=== PATIENT | female | born 1995 | race Caucasian/White ===

== ENCOUNTER 2018-01-04 12:10 | Emergency (ER) | payer OTHER ==
[~2018-01-04 12:10] MED LIST: Z.0.BCPILL PO
[2018-01-04 12:17] VITALS: BP 112/62; PULSE 83; RESP 16; TEMP 97.3; O2SAT 100
[2018-01-04] MEDS ORDERED: ONDANSETRON HCL 4 MG/2 ML VIAL IV PUSH ONE (12:30)
[2018-01-04] MEDS ORDERED: ONDANSETRON ODT 4 MG TAB PO ONE (12:30)
[2018-01-04] MEDS ORDERED: SODIUM CHLOR 0.9% 1000 ML INJ 1,000 ML IV ONE ×2 (12:30→13:30)
[2018-01-04 12:40] LABS: AUTOMATED NEUTROPHIL # 2.4 TH/MM3 (1.8-7.7); BASOPHIL % 0.3 % (0.0-2.0); EOSINOPHIL # 0.1 TH/MM3 (0-0.4); EOSINOPHIL % 1.7 % (0.0-4.0); HEMATOCRIT 43.3 % (35.0-46.0); LYMPH % 30.5 % (9.0-44.0); LYMPHOCYTE # 1.4 TH/MM3 (1.0-4.8); MEAN CORPUSCULAR HEMOGLOBIN 29.8 PG (27.0-34.0); MEAN CORPUSCULAR HGB CONC 34.6 % (32.0-36.0); MONO % 13.8 % (0.0-8.0); MONOCYTE # 0.6 TH/MM3 (0-0.9); NEUT % 53.7 % (16.0-70.0); PLATELET COUNT 233 TH/MM3 (150-450); RED BLOOD COUNT 5.04 MIL/MM3 (4.00-5.30); RED CELL DISTRIBUTION WIDTH 12.9 % (11.6-17.2); WHITE BLOOD COUNT 4.5 TH/MM3 (4.0-11.0)
[2018-01-04 12:53] LABS: ALBUMIN 3.9 GM/DL (3.4-5.0); AST (GOT) 33 U/L (16-38); BICARBONATE 28.5 MEQ/L (21.0-32.0); BLOOD UREA NITROGEN 7 MG/DL (7-18); CALCIUM 9.1 MG/DL (8.5-10.1); CHLORIDE 104 MEQ/L (98-107); CREATININE 0.72 MG/DL (0.50-1.00); GLOMERULAR FILTRATION RATE 103 ML/MIN (>89); GLUCOSE,RANDOM 84 MG/DL (74-106); SODIUM (NA) 139 MEQ/L (136-145)
[2018-01-04 12:54] LABS: ALT (GPT) 41 U/L (9-42)
[2018-01-04 12:56] LABS: ALKALINE PHOSPHATASE 92 U/L (45-117); TOTAL BILIRUBIN ADULT 0.6 MG/DL (0.2-1.0); TOTAL PROTEIN 7.6 GM/DL (6.4-8.2)
[2018-01-04] MEDS ORDERED: ZOFR4TAB3 SL (13:30)
[2018-01-04 14:10] LABS: BILIRUBIN, URINE NEG (NEG); BLOOD, URINE NEG (NEG); GLUCOSE,URINE NEG (NEG); KETONE, URINE 40 mg/dL (NEG); MUCUS URINE FEW /lpf (OCC); NITRITE,URINE NEG (NEG); PH, URINE 6.5 (5.0-8.5); SQUAMOUS EPITHELIAL CELL URINE 3 /hpf (0-5); URINE COLOR YELLOW (YELLW/STRAW); URINE LEUKOCYTE ESTERASE NEG (NEG)
[2018-01-04] MEDS ORDERED: HYOSCYAMINE 0.125 MG TAB PO STA (14:24)
--- NOTE | 2018-01-04 14:24 | PD ---
HPI Chief Complaint: GI Complaint Time Seen by Provider: 12:12 Travel History International Travel<30 days: No Contact w/Intl Traveler<30days: No Traveled to known affect area: No History of Present Illness HPI Patient is here with numerous episodes of watery green diarrhea that lacks blood and mucus. She has crampy abdominal pain but nothing severe. She had chills yesterday. She had temperature of 100.6F. No back pain or dysuria. No sore throat or rhinorrhea or otalgia or eye drainage. She has been a little bit dizzy and feeling dehydrated. Her stepfather and nephew and sisters have similar syndrome. When she eats she has immediate diarrhea and then starts vomiting. Other than that she is not having profuse vomiting. No dysuria or hematuria. No rash or headache. No mental status changes or seizures. No severe abdominal pain History Past Medical History Medical History: Denies Significant Hx Developmental Delay: No Hearing: No Pneumonia: Yes (AGE 10) Immunizations Current: Yes Tetanus Vaccination: < 5 Years Vision or Eye Problem: No ?: Not Past Surgical History Surgical History: No Previous Surgery Social History Attends: School Tobacco Use in Home: No Alcohol Use: No Tobacco Use: No Substance Use: No Allergies-Medications (Allergen,Severity, Reaction): Coded Allergies: No Known Allergies (Unverified Allergy, Unknown, 01/04/18) Sulfa (Sulfonamide Antibiotics) (Verified Allergy, Unknown, 01/04/18) Reported Meds & Prescriptions Reported Meds & Active Scripts Active Levsin (Hyoscyamine Sulfate) 0.125 Mg Tab 0.125 Mg PO Q6H 10 Days Zofran Odt (Ondansetron Odt) 4 Mg Tab 4 Mg SL Q8HR PRN 14 Days Reported Control Pills (Miscellaneous Medication) Tab 1 Tab PO HS ROS Except as stated in HPI: all other systems reviewed are Neg Physical Exam Narrative GENERAL APPEARANCE: The patient is a well-developed, well-nourished, child in no acute distress. SKIN: Skin is warm and dry without erythema, swelling or exudate. There is good turgor. No tenting. HEENT: Throat is clear without erythema, swelling or exudate. Mucous membranes are dry Uvula is midline. Airway is patent. The pupils are equal, round and reactive to light. Extraocular motions are intact. No drainage or injection. The ears show bilateral tympanic membranes without erythema, dullness or loss of landmarks. No perforation. NECK: Supple and nontender with full range of motion without discomfort. No meningeal signs. LUNGS: Equal and bilateral breath sounds without wheezes, rales or rhonchi. CHEST: The chest wall is without retractions or use of accessory muscles. HEART: Has a regular rate and rhythm without murmur, gallops, click or rub. ABDOMEN: Soft, nontender with positive active bowel sounds. No rebound tenderness. No masses, no hepatosplenomegaly. EXTREMITIES: Without cyanosis, clubbing or edema. Equal 2+ distal pulses and 2 second capillary refill noted. NEUROLOGIC: The patient is alert, aware, and appropriately interactive with parent and with examiner. The patient moves all extremities with normal muscle strength. Normal muscle tone is noted. Normal coordination is noted. Data Data Last Documented VS Vital Signs Date Time Temp Pulse Resp B/P (MAP) Pulse Ox O2 Delivery O2 Flow Rate FiO2 01/04/18 12:17 97.3 83 16 112/62 (79) 100 Orders Orders Ondansetron Odt (Zofran Odt) (01/04/18 12:30) Ondansetron Inj (Zofran Inj) (01/04/18 12:30) Sodium Chlor 0.9% 1000 Ml Inj (Ns 1000 M (01/04/18 12:30) C-Reactive Protein (Crp) (01/04/18 12:20) Complete Blood Count With Diff (01/04/18 12:20) Comprehensive Metabolic Panel (01/04/18 12:20) Urinalysis - C+S If Indicated (01/04/18 12:20) Sodium Chlor 0.9% 1000 Ml Inj (Ns 1000 M (01/04/18 13:30) Enteric Path (Stool) (01/04/18 13:42) Rotavirus Ag Detection (Stool) (01/04/18 13:42) Hyoscyamine (Levsin) (01/04/18 14:24) Labs Laboratory Tests Test 01/04/18 12:30 01/04/18 13:30 White Blood Count 4.5 TH/MM3 Red Blood Count 5.04 MIL/MM3 Hemoglobin 15.0 GM/DL Hematocrit 43.3 % Mean Corpuscular Volume 86.0 FL Mean Corpuscular Hemoglobin 29.8 PG Mean Corpuscular Hemoglobin Concent 34.6 % Red Cell Distribution Width 12.9 % Platelet Count 233 TH/MM3 Mean Platelet Volume 8.0 FL Neutrophils (%) (Auto) 53.7 % Lymphocytes (%) (Auto) 30.5 % Monocytes (%) (Auto) 13.8 % Eosinophils (%) (Auto) 1.7 % Basophils (%) (Auto) 0.3 % Neutrophils # (Auto) 2.4 TH/MM3 Lymphocytes # (Auto) 1.4 TH/MM3 Monocytes # (Auto) 0.6 TH/MM3 Eosinophils # (Auto) 0.1 TH/MM3 Basophils # (Auto) 0.0 TH/MM3 CBC Comment DIFF FINAL Differential Comment Blood Urea Nitrogen 7 MG/DL Creatinine 0.72 MG/DL Random Glucose 84 MG/DL Total Protein 7.6 GM/DL Albumin 3.9 GM/DL Calcium Level 9.1 MG/DL Alkaline Phosphatase 92 U/L Aspartate Amino Transf (AST/SGOT) 33 U/L Alanine Aminotransferase (ALT/SGPT) 41 U/L Total Bilirubin 0.6 MG/DL Sodium Level 139 MEQ/L Potassium Level 3.7 MEQ/L Chloride Level 104 MEQ/L Carbon Dioxide Level 28.5 MEQ/L Anion Gap 7 MEQ/L Estimat Glomerular Filtration Rate 103 ML/MIN C-Reactive Protein 4.00 MG/DL Urine Color YELLOW Urine Turbidity CLEAR Urine pH 6.5 Urine Specific [place] 1.015 Urine Protein TRACE mg/dL Urine Glucose (UA) NEG mg/dL Urine Ketones 40 mg/dL Urine Occult Blood NEG Urine Nitrite NEG Urine Bilirubin NEG Urine Urobilinogen LESS THAN 2.0 MG/DL Urine Leukocyte Esterase NEG Urine RBC 3 /hpf Urine WBC 2 /hpf Urine Squamous Epithelial Cells 3 /hpf Urine Mucus FEW /lpf Microscopic Urinalysis Comment CULT NOT INDICATED MDM Medical Decision Making Medical Screen Exam Complete: Yes Emergency Medical Condition: Yes Medical Record Reviewed: Yes Differential Diagnosis Viral gastroenteritis, rotavirus, [place] virus, bacterial gastroenteritis such as Salmonella or Shigella, less likely parasitic gastroenteritis, mild dehydration, UTI, Narrative Course Patient is here because she has had 2-3 days of watery fulminant diarrhea. She has having some weakness and dizziness and appeared dehydrated on exam. She is having some cramping but no severe abdominal pain. Her labs were concerning for a regular normal white count but high CRP up to 4. Urine had ketones. Hemoglobin is hemoconcentrated and CBC. She was given 2 L of normal saline and felt much better. She was also given Zofran. She was sent home with a prescription for Zofran. Stool was collected and sent for enteric pathogens as well as rotavirus. She was sent home with Zofran and Levsin. Diagnosis Primary Impression: Gastroenteritis and colitis, viral Patient Instructions: Gastroenteritis in Children (ED), General Instructions Additional Instructions: Try to drink as much as possible and eat things rich in potassium. Med/Other Pt SpecificInfo: Prescription(s) given Scripts Hyoscyamine (Levsin) 0.125 Mg Tab 0.125 MG PO Q6H for Gastrointestinal disorders for 10 Days, #40 TAB 0 Refills Prov: Katarzyna Vaughn MD 01/04/18 Ondansetron Odt (Zofran Odt) 4 Mg Tab 4 MG SL Q8HR Y for Nausea/Vomiting for 14 Days, #30 TAB 0 Refills Prov: Katarzyna Vaughn MD 01/04/18 Disposition: 01 DISCHARGE HOME Condition: Good Primary Care Physician MD Roderick Oates Nalini P. MD Jan 04, 2018 14:24
[2018-01-04] MEDS ORDERED: LEVS0.123 PO (14:34)
== END 2018-01-04 15:15 | disposition home or self-care (01) ==
LOC: NEPA 12:10
DX: A08.4 Viral intestinal infection, unspecified (principal); R53.1 Weakness; R42 Dizziness and giddiness; Z88.2 Allergy status to sulfonamides
CPT/HCPCS: 80053; 81001; 85025; 86140; 87425; 87506; 96361; 96374; 99284; J2405; J7030